=== PATIENT | female | born 1945 | race Caucasian/White ===

== ENCOUNTER 2018-03-11 11:30 | Outpatient (AMBR) | payer MEDICARE, BC, SELFPAY ==
--- NOTE | 2018-03-04 10:12 | PT.OIERPT ---
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 She is ambulating without assistive device today and uses the cane sometimes and has fear of falling and feels off balance at times. She grocery shops alone with the cart and she can cook with limited function. Pt is independent with ADL's and can do laundry. She lives with her and has a ramp up to her single story home. 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 Pt goal: to loosen up the muscles on her left side and regain strength Objective L shoulder AROM: Strength: FF: 116 deg 3-/5 Abd: 60 deg 3-/5 Erot: 45 deg 3-/5 L knee AROM: Strength: Flexion: 116 deg 4-/5 Extension: full 4-/5 SLR: 55 deg Hip flexion: 108 deg 4-/5 Observation: B genu valgus 30 sec chair to stand: 5, unable to complete due to knee pain Tinetti: 08/01 high fall risk Assessment Pt presentation consistent with referring Dx with decreased balance and functional mobility. Pt is a high fall risk according to Tinetti score. She ambulates with unsymmetrical hemiplegic pattern with increased trunk sway. Poor SL balance and wt shift to L side with decreased foot clearance and step symmetry. Pt has fair rehab potential to reach stated goals due to ssx chronicity as potential barrier. Short Term and Media Senior Recruiter Goals 1. Independent with HEP 2. Improved Tinetti score to 10/31 to demonstrate improved balance and gait. 3. Improved immediate standing balance without sway or moving feet 4. Pt will clear floor with L foot with gait for 50' Treatment Plan 90 day POC in order to complete visits. Pt requires skilled therapy in order to meet stated goals. Rx may consist of Therex, Manual therapy, Neuromuscular re-education, Modalities as indicated-moist heat packs, ice packs, estim Frequency and Duration 2x a week for 6 weeks Certification Dates: 03/04/18 to 06/02/18 Office Procedures PT Outpatient G-Codes Date of Service PT Date of Service: 03/04/18 G-Codes Walking & Moving Around Mobility Current Status G-Code: G8978: CL 60-80% Mobility Status G-Code: G8979: CK 40-60% PT Procedures PT Date of Service: 03/04/18 OP PT Eval Mod Complex 30 minutes: Yes CVA/TIA Most Recent Cardiac Tests: No Data to Display
--- NOTE | 2018-03-04 10:18 | PTNOTE_ITS ---
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 She is ambulating without assistive device today and uses the cane sometimes and has fear of falling and feels off balance at times. She grocery shops alone with the cart and she can cook with limited function. Pt is independent with ADL's and can do laundry. She lives with her and has a ramp up to her single story home. 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 Pt goal: to loosen up the muscles on her left side and regain strength Objective L shoulder AROM: Strength: FF: 116 deg 3-/5 Abd: 60 deg 3-/5 Erot: 45 deg 3-/5 L knee AROM: Strength: Flexion: 116 deg 4-/5 Extension: full 4-/5 SLR: 55 deg Hip flexion: 108 deg 4-/5 Observation: B genu valgus 30 sec chair to stand: 5, unable to complete due to knee pain Tinetti: 08/01 high fall risk Assessment Pt presentation consistent with referring Dx with decreased balance and functional mobility. Pt is a high fall risk according to Tinetti score. She ambulates with unsymmetrical hemiplegic pattern with increased trunk sway. Poor SL balance and wt shift to L side with decreased foot clearance and step symmetry. Pt has fair rehab potential to reach stated goals due to ssx chronicity as potential barrier. Short Term and Chandelier Maker Goals 1. Independent with HEP 2. Improved Tinetti score to 10/31 to demonstrate improved balance and gait. 3. Improved immediate standing balance without sway or moving feet 4. Pt will clear floor with L foot with gait for 50' Treatment Plan 90 day POC in order to complete visits. Pt requires skilled therapy in order to meet stated goals. Rx may consist of Therex, Manual therapy, Neuromuscular re- education, Modalities as indicated-moist heat packs, ice packs, estim Frequency and Duration 2x a week for 6 weeks Certification Dates: 03/04/18 to 06/02/18 Office Procedures PT Outpatient G-Codes Date of Service PT Date of Service: 03/04/18 G-Codes Walking & Moving Around Mobility Current Status G-Code: G8978: CL 60-80% Mobility Status G-Code: G8979: CK 40-60% PT Procedures PT Date of Service: 03/04/18 OP PT Eval Mod Complex 30 minutes: Yes CVA/TIA Most Recent Cardiac Tests: 2 No Data to Display
--- NOTE | 2018-03-06 10:58 | PTNOTE_ITS ---
PT Outpatient Daily Note Date of Service: March 06, 2018 OP Daily Note Visit Reasons: Cerebrovascular accident Outpatient Physical Therapy Treatment Date: 03/06/18 Subjective: Pt's balance still a little off and notice that she continues to have difficulty using her left arm. Objective: Please see flow chart for list of ther ex performed Assessment: tolerate exercises performed today Plan: Continue with PT Length of Time (minutes) of Treatment: 40 Minutes Office Procedures PT Outpatient G-Codes Date of Service PT Date of Service: 03/04/18 G-Codes Walking & Moving Around Mobility Current Status G-Code: G8978: CL 60-80% Mobility Status G-Code: G8979: CK 40-60% PT Procedures PT Date of Service: 03/04/18 OP PT Eval Mod Complex 30 minutes: Yes PT Procedures PT Date of Service: 03/06/18 Therapeutic Exercise 45 minutes: Yes CVA/TIA Most Recent Cardiac Tests: 2 No Data to Display
--- NOTE | 2018-03-11 12:02 | PTNOTE_ITS ---
PT Outpatient Daily Note Date of Service: March 11, 2018 OP Daily Note Visit Reasons: Cerebrovascular accident Outpatient Physical Therapy Treatment Date: 03/11/18 Subjective: Pt stated that she is running late. Pt was very sore after last treatment session. Objective: Please see flow chart for list of ther ex performed Assessment: Pt came in at 11:40 am and was advised that sessions are only 30 mins and will only be seen for 20 mins. Pt agree and willing to perform what she can in therapy. We discuss old stroke and process of recovery. Pt was educated based upon my expertise that old stroke that has happen a few years ago and now performing PT will not change much of her muscle activities. Pt was in disagreement that she read online it does change and will like to continue PT. Pt advised that if she continues to proceed with PT she will be given HEP on a weekly basis to continue to maintain what she has gained and be release within medicare guideline. She was also educated that within medicare guideline she does have a medicare cap and if do not make weekly progress I will have to release her from care. Pt instantly mad and walked out of the clinic requesting to be release from all pending appts. Plan: Will contact patient as she calms down regarding her future PT sessions. Length of Time (minutes) of Treatment: 15 Minutes Office Procedures PT Outpatient G-Codes Date of Service PT Date of Service: 03/04/18 G-Codes Walking & Moving Around Mobility Current Status G-Code: G8978: CL 60-80% Mobility Status G-Code: G8979: CK 40-60% PT Procedures PT Date of Service: 03/04/18 OP PT Eval Mod Complex 30 minutes: Yes PT Procedures PT Date of Service: 03/11/18 Therapeutic Exercise 15 minutes: Yes PT Procedures PT Date of Service: 03/06/18 Therapeutic Exercise 45 minutes: Yes CVA/TIA Most Recent Cardiac Tests: 2 No Data to Display
== END 2018-04-03 23:59 ==
PROVIDERS: PCP Internal Medicine; Referring Provider Internal Medicine; Visit Provider Psychiatry & Neurology Neurology
DX: I10 Essential (primary) hypertension (principal)
CPT/HCPCS: 97110; 97162; G8978; G8979

== ENCOUNTER → 2024-10-05 | Outpatient (CLI) | payer MEDICARE, BC, SELFPAY ==
[2024-10-05 09:56] LABS: Alanine Aminotransferase 36 U/L (10-49); Albumin, Serum 4.7 gm/dL (3.4-4.8); Albumin/Globulin Ratio 2.4 (1.2-2.2); Alkaline Phosphatase 88 U/L (46-116); Anion Gap 9 (7-16); Aspartate Amino Transferase 31 U/L (0-34); BUN/Creatinine Ratio 15 Ratio (12-20); Bilirubin,Total 1.3 mg/dL (0.3-1.2); Blood Urea Nitrogen 15 mg/dL (9-23); Calcium 9.9 mg/dL (8.3-10.6); Calcium (Corrected) 9.9 mg/dL (8.5-10.1); Carbon Dioxide 26.3 mMol/L (20.0-31.0); Cardiac Risk Estimate 2.5 RATIO (3.7-5.6); Chloride 99 mMol/L (98-107); Cholesterol 150 mg/dL (132-200); Glucose 109 mg/dL (74-106); HDL Cholesterol 60 mg/dL (40-60); LDL Cholesterol,Calculated 63 mg/dL (0-130); Osmolality,Calculated 270 (275-295); Sodium 134 mMol/L (136-145); Total Protein 6.7 gm/dL (5.7-8.2); Triglycerides 136 mg/dL (30-150); eGFR 57 See Note
[2024-10-05 10:51] LABS: Glucose Estimated Average 117 mg/dL (80-131); Hemoglobin A1C 5.7 % Hgb (4.8-6.0)
== END | disposition home or self-care (01) ==
LOC: COPL 09:02
PROVIDERS: PCP Family Medicine; Referring Provider Physician Assistant; Visit Provider Physician Assistant
DX: I10 Essential (primary) hypertension (principal); R73.01 Impaired fasting glucose; E78.5 Hyperlipidemia, unspecified; E03.9 Hypothyroidism, unspecified
CPT/HCPCS: 36415; 80053; 80061; 83036; 84443

== ENCOUNTER → 2025-02-19 | Outpatient (CLI) | payer MEDICARE, BC, SELFPAY ==
[2025-02-19 11:28] LABS: Basophils % (Auto) 0 % (0-2.5); Eosinophils % (Auto) 1 % (0-10); Hemoglobin 13.2 g/dL (12.0-16.0); Immature Granulocytes % (Auto) 0 % (0-0); Immature Granulocytes Auto 0.03 Thou/mm3 (0.00-0.00); Lymphocytes # (Auto) 1.1 Thou/mm3 (1.0-4.8); Lymphocytes % (Auto) 13 % (10-50); Mean Corpuscular HGB Conc 34.7 g/dl (31.0-37.0); Mean Corpuscular Hemoglobin 30.6 pg (25.0-35.0); Mean Corpuscular Volume 88 fL (80-100); Monocytes # (Auto) 0.6 Thou/mm3 (0.0-0.8); Monocytes % (Auto) 7 % (0-12); Neutrophils # (Auto) 6.9 Thou/mm3 (1.8-7.7); Neutrophils % (Auto) 79 % (37-80); Nucleated Red Blood Cell % 0 /100 WBC (0); Platelet Count 336 Thou/mm3 (140-440); RDW Standard Deviation 42.6 fL (36.4-46.3); Red Blood Count 4.31 Miln/mm3 (4.00-5.20); White Blood Count 8.6 Thou/mm3 (3.6-11.0)
[2025-02-19 11:40] LABS: Alanine Aminotransferase 26 U/L (10-49); Albumin, Serum 4.3 gm/dL (3.4-4.8); Alkaline Phosphatase 91 U/L (46-116); Anion Gap 10 (7-16); Aspartate Amino Transferase 32 U/L (0-34); BUN/Creatinine Ratio 17 Ratio (12-20); Bilirubin,Total 1.3 mg/dL (0.3-1.2); Blood Urea Nitrogen 15 mg/dL (9-23); Calcium 9.7 mg/dL (8.3-10.6); Calcium (Corrected) 9.7 mg/dL (8.5-10.1); Carbon Dioxide 24.2 mMol/L (20.0-31.0); Chloride 96 mMol/L (98-107); Creatinine (Component) 0.9 mg/dL (0.6-1.3); Globulin 2.1 gm/dL (2.3-3.5); Glucose 120 mg/dL (74-106); Osmolality,Calculated 262 (275-295); Potassium 3.8 mMol/L (3.4-5.1); Sodium 130 mMol/L (136-145); Total Protein 6.4 gm/dL (5.7-8.2); eGFR > 60 See Note
== END | disposition home or self-care (01) ==
PROVIDERS: PCP Physician Assistant; Referring Provider Physician Assistant; Visit Provider Physician Assistant
DX: K52.9 Noninfective gastroenteritis and colitis, unspecified (principal); R53.1 Weakness
CPT/HCPCS: 36415; 80053; 85025

== ENCOUNTER → 2025-02-24 | Outpatient (CLI) | payer MEDICARE, BC, SELFPAY ==
[2025-02-24 14:59] LABS: Stool for WBCs Negative (Negative)
== END | disposition home or self-care (01) ==
LOC: SLDO 08:22
PROVIDERS: PCP Family Medicine; Referring Provider Physician Assistant; Visit Provider Physician Assistant
DX: K52.9 Noninfective gastroenteritis and colitis, unspecified (principal); R53.1 Weakness
CPT/HCPCS: 87015; 87045; 87046; 87177; 87205; 87209; 87493; 87899

== ENCOUNTER → 2025-03-26 | Outpatient (CLI) | payer MEDICARE, BC, SELFPAY ==
[2025-03-26 08:19] LABS: Collection Type, Urine Clean Catch
[2025-03-26 08:37] LABS: Basophils # (Auto) 0.1 Thou/mm3 (0.0-0.2); Basophils % (Auto) 1 % (0-2.5); Eosinophils # (Auto) 0.2 Thou/mm3 (0.0-0.5); Eosinophils % (Auto) 2 % (0-10); Hematocrit 39.6 % (36.0-46.0); Hemoglobin 13.8 g/dL (12.0-16.0); Immature Granulocytes % (Auto) 0 % (0-0); Immature Granulocytes Auto 0.01 Thou/mm3 (0.00-0.00); Lymphocytes % (Auto) 30 % (10-50); Mean Corpuscular HGB Conc 34.8 g/dl (31.0-37.0); Mean Corpuscular Hemoglobin 31.1 pg (25.0-35.0); Mean Corpuscular Volume 89 fL (80-100); Monocytes # (Auto) 0.6 Thou/mm3 (0.0-0.8); Monocytes % (Auto) 9 % (0-12); Neutrophils # (Auto) 3.8 Thou/mm3 (1.8-7.7); Neutrophils % (Auto) 58 % (37-80); Nucleated Red Blood Cell % 0 /100 WBC (0); Platelet Count 309 Thou/mm3 (140-440); RDW Standard Deviation 46.1 fL (36.4-46.3); Red Blood Count 4.44 Miln/mm3 (4.00-5.20); White Blood Count 6.6 Thou/mm3 (3.6-11.0)
[2025-03-26 08:45] LABS: Bilirubin,Urine Negative (Negative); Blood,Urine Negative (Negative); Clarity,Urine Clear (Clear/Hazy); Color,Urine Lt-Yellow (Lt Yel-Yel); Culture Indicated,Urine Not Indicated; Glucose, Urine Negative (Negative); Ketones,Urine Negative (Negative); Leukocyte Esterase,Urine Positive (Negative); Nitrite,Urine Negative (Negative); PH,Urine 6.5 (5.0-7.0); Protein,Urine Negative (Neg - Trace); RBC,Urine 4 /hpf (0-3); Specific Gravity,Urine 1.012 (1.001-1.035); Squamous Epithelial Cell,Urine 2 /hpf (0-5); Urobilinogen,Urine Negative mg/dL (0.0-1.0); WBC,Urine 4 /hpf (0-5)
[2025-03-26 08:46] LABS: Glucose Estimated Average 117 mg/dL (80-131); Hemoglobin A1C 5.7 % Hgb (4.8-6.0)
[2025-03-26 08:51] LABS: Alanine Aminotransferase 37 U/L (10-49); Albumin, Serum 4.6 gm/dL (3.4-4.8); Albumin/Globulin Ratio 1.7 (1.2-2.2); Alkaline Phosphatase 86 U/L (46-116); Anion Gap 9 (7-16); Aspartate Amino Transferase 41 U/L (0-34); BUN/Creatinine Ratio 14 Ratio (12-20); Bilirubin,Total 1.2 mg/dL (0.3-1.2); Blood Urea Nitrogen 14 mg/dL (9-23); Calcium 9.6 mg/dL (8.3-10.6); Calcium (Corrected) 9.6 mg/dL (8.5-10.1); Carbon Dioxide 27.4 mMol/L (20.0-31.0); Cardiac Risk Estimate 2.5 RATIO (3.7-5.6); Chloride 101 mMol/L (98-107); Cholesterol 158 mg/dL (132-200); Globulin 2.7 gm/dL (2.3-3.5); Glucose 105 mg/dL (74-106); HDL Cholesterol 64 mg/dL (40-60); LDL Cholesterol,Calculated 66 mg/dL (0-130); Osmolality,Calculated 274 (275-295); Sodium 137 mMol/L (136-145); Thyroid Stimulating Hormone 0.52 uIU/mL (0.55-4.78); Total Protein 7.3 gm/dL (5.7-8.2); Triglycerides 141 mg/dL (30-150); eGFR 57 See Note
[2025-03-26 09:03] LABS: Vitamin B12 800 pg/mL (211-911)
== END | disposition home or self-care (01) ==
LOC: COPL 07:38
PROVIDERS: PCP Family Medicine; Referring Provider Physician Assistant; Visit Provider Physician Assistant
DX: I10 Essential (primary) hypertension (principal); R73.01 Impaired fasting glucose; E78.5 Hyperlipidemia, unspecified; E03.9 Hypothyroidism, unspecified
CPT/HCPCS: 36415; 80053; 80061; 81001; 82306; 82607; 83036; 84443; 85025

== ENCOUNTER → 2025-04-12 | Outpatient (CLI) | payer MEDICARE, BC, SELFPAY | END | disposition home or self-care (01) | LOC: SLDO 14:36 | PROVIDERS: PCP Physician Assistant; Referring Provider Physician Assistant; Visit Provider Physician Assistant | DX: N39.0 Urinary tract infection, site not specified (principal) | CPT/HCPCS: 87077; 87086; 87186 ==

== ENCOUNTER → 2025-04-30 | Outpatient (CLI) | payer MEDICARE, BC, SELFPAY ==
[2025-04-30 14:27] LABS: Collection Type, Urine Clean Catch; Squamous Epithelial Cell,Urine 0 /hpf (0-5)
[2025-04-30 16:23] LABS: Bacteria,Urine 4+; Bilirubin,Urine Negative (Negative); Blood,Urine 3+ (Negative); Color,Urine Yellow (Lt Yel-Yel); Glucose, Urine Negative (Negative); Ketones,Urine Negative (Negative); Leukocyte Esterase,Urine Positive (Negative); Nitrite,Urine Negative (Negative); Protein,Urine Trace (Neg - Trace); RBC,Urine 176 /hpf (0-3); Specific Gravity,Urine 1.011 (1.001-1.035); Urobilinogen,Urine Negative mg/dL (0.0-1.0); WBC,Urine 1051 /hpf (0-5)
[2025-04-30 16:32] LABS: Clarity,Urine Cloudy (Clear/Hazy)
== END | disposition home or self-care (01) ==
LOC: SLDO 14:10
PROVIDERS: PCP Family Medicine; Referring Provider Family Medicine; Visit Provider Family Medicine
DX: N39.0 Urinary tract infection, site not specified (principal)
CPT/HCPCS: 81001; 87077; 87086; 87186

== ENCOUNTER → 2025-06-03 | Outpatient (CLI) | payer MEDICARE, BC, SELFPAY ==
[2025-06-03 09:14] LABS: Collection Type, Urine Clean Catch
[2025-06-03 09:39] LABS: Basophils # (Auto) 0.1 Thou/mm3 (0.0-0.2); Basophils % (Auto) 1 % (0-2.5); Eosinophils # (Auto) 0.1 Thou/mm3 (0.0-0.5); Eosinophils % (Auto) 1 % (0-10); Hematocrit 40.0 % (36.0-46.0); Hemoglobin 13.7 g/dL (12.0-16.0); Immature Granulocytes Auto 0.01 Thou/mm3 (0.00-0.00); Lymphocytes # (Auto) 1.5 Thou/mm3 (1.0-4.8); Lymphocytes % (Auto) 24 % (10-50); Mean Corpuscular HGB Conc 34.3 g/dl (31.0-37.0); Mean Corpuscular Hemoglobin 31.4 pg (25.0-35.0); Mean Corpuscular Volume 92 fL (80-100); Monocytes # (Auto) 0.5 Thou/mm3 (0.0-0.8); Monocytes % (Auto) 9 % (0-12); Neutrophils # (Auto) 4.1 Thou/mm3 (1.8-7.7); Neutrophils % (Auto) 65 % (37-80); Nucleated Red Blood Cell # 0.00 Thou/mm3 (0.00-0.00); Nucleated Red Blood Cell % 0 /100 WBC (0); Platelet Count 292 Thou/mm3 (140-440); RDW Standard Deviation 46.5 fL (36.4-46.3); Red Blood Count 4.37 Miln/mm3 (4.00-5.20); White Blood Count 6.3 Thou/mm3 (3.6-11.0)
[2025-06-03 09:43] LABS: Glucose Estimated Average 123 mg/dL (80-131); Hemoglobin A1C 5.9 % Hgb (4.8-6.0)
[2025-06-03 09:43] LABS: Bilirubin,Urine Negative (Negative); Blood,Urine Negative (Negative); Clarity,Urine Clear (Clear/Hazy); Color,Urine Lt-Yellow (Lt Yel-Yel); Glucose, Urine Negative (Negative); Ketones,Urine Negative (Negative); Leukocyte Esterase,Urine Negative (Negative); Nitrite,Urine Negative (Negative); PH,Urine 7.0 (5.0-7.0); Protein,Urine Negative (Neg - Trace); RBC,Urine 2 /hpf (0-3); Specific Gravity,Urine 1.009 (1.001-1.035); Squamous Epithelial Cell,Urine < 1 /hpf (0-5); Urobilinogen,Urine Negative mg/dL (0.0-1.0); WBC,Urine 1 /hpf (0-5)
[2025-06-03 09:51] LABS: Vitamin B12 477 pg/mL (211-911); Vitamin D 25 Hydroxy Total 46.2 ng/mL (7.3-40.2)
[2025-06-03 09:53] LABS: Alanine Aminotransferase 38 U/L (10-49); Albumin, Serum 4.3 gm/dL (3.4-4.8); Albumin/Globulin Ratio 1.7 (1.2-2.2); Alkaline Phosphatase 80 U/L (46-116); Anion Gap 6 (7-16); Aspartate Amino Transferase 38 U/L (0-34); BUN/Creatinine Ratio 13 Ratio (12-20); Bilirubin,Total 1.3 mg/dL (0.3-1.2); Blood Urea Nitrogen 12 mg/dL (9-23); Calcium 9.7 mg/dL (8.3-10.6); Calcium (Corrected) 9.7 mg/dL (8.5-10.1); Carbon Dioxide 27.1 mMol/L (20.0-31.0); Cardiac Risk Estimate 2.3 RATIO (3.7-5.6); Chloride 99 mMol/L (98-107); Cholesterol 139 mg/dL (132-200); Creatinine (Component) 0.9 mg/dL (0.6-1.3); Free T4 (Free Thyroxine) 1.55 ng/dL (0.89-1.76); Globulin 2.5 gm/dL (2.3-3.5); Glucose 104 mg/dL (74-106); HDL Cholesterol 60 mg/dL (40-60); LDL Cholesterol,Calculated 56 mg/dL (0-130); Osmolality,Calculated 264 (275-295); Potassium 4.5 mMol/L (3.4-5.1); Sodium 132 mMol/L (136-145); Thyroid Stimulating Hormone 1.11 uIU/mL (0.55-4.78); Total Protein 6.8 gm/dL (5.7-8.2); Triglycerides 113 mg/dL (30-150); eGFR > 60 See Note
== END | disposition home or self-care (01) ==
LOC: COPL 08:02
PROVIDERS: PCP Physician Assistant; Referring Provider Internal Medicine Cardiovascular Disease; Visit Provider Internal Medicine Cardiovascular Disease
DX: I48.21 Permanent atrial fibrillation (principal); E03.9 Hypothyroidism, unspecified; I10 Essential (primary) hypertension; E78.5 Hyperlipidemia, unspecified; R73.01 Impaired fasting glucose; E55.9 Vitamin D deficiency, unspecified
CPT/HCPCS: 36415; 80053; 80061; 81001; 82306; 82607; 83036; 84439; 84443; 85025; 87086

== ENCOUNTER → 2025-07-09 | Outpatient (CLI) | payer MEDICARE, BC, SELFPAY ==
[2025-07-09 09:40] LABS: Alanine Aminotransferase 48 U/L (10-49); Albumin, Serum 4.3 gm/dL (3.4-4.8); Albumin/Globulin Ratio 1.9 (1.2-2.2); Alkaline Phosphatase 77 U/L (46-116); Anion Gap 12 (7-16); Aspartate Amino Transferase 44 U/L (0-34); BUN/Creatinine Ratio 15 Ratio (12-20); Bilirubin,Total 1.0 mg/dL (0.3-1.2); Blood Urea Nitrogen 15 mg/dL (9-23); Calcium 10.2 mg/dL (8.3-10.6); Calcium (Corrected) 10.2 mg/dL (8.5-10.1); Carbon Dioxide 25.3 mMol/L (20.0-31.0); Chloride 102 mMol/L (98-107); Creatinine (Component) 1.0 mg/dL (0.6-1.3); Globulin 2.3 gm/dL (2.3-3.5); Glucose 100 mg/dL (74-106); Osmolality,Calculated 278 (275-295); Potassium 4.1 mMol/L (3.4-5.1); Sodium 139 mMol/L (136-145); Total Protein 6.6 gm/dL (5.7-8.2); eGFR 56 See Note
[2025-07-13 06:54] LABS: Fecal Globin Result NOT DETECTED (NOT DETECTED)
== END | disposition home or self-care (01) ==
LOC: COPL 08:53
PROVIDERS: PCP Family Medicine; Referring Provider Physician Assistant; Visit Provider Physician Assistant
DX: I10 Essential (primary) hypertension (principal); E03.9 Hypothyroidism, unspecified; E78.5 Hyperlipidemia, unspecified; R73.01 Impaired fasting glucose; E55.9 Vitamin D deficiency, unspecified
CPT/HCPCS: 36415; 80053; 82274; G0328

== ENCOUNTER → 2025-08-13 | Outpatient (CLI) | payer MEDICARE, BC, SELFPAY | END | disposition home or self-care (01) | LOC: SLDO 14:46 | PROVIDERS: PCP Nurse Practitioner Family; Referring Provider Nurse Practitioner Family; Visit Provider Nurse Practitioner Family | DX: N30.00 Acute cystitis without hematuria (principal) | CPT/HCPCS: 87077; 87086; 87186 ==

== ENCOUNTER → 2025-08-26 | Outpatient (CLI) | payer MEDICARE, BC, SELFPAY | END | disposition home or self-care (01) | LOC: SLDO 15:01 | PROVIDERS: PCP Physician Assistant; Referring Provider Physician Assistant; Visit Provider Physician Assistant | DX: N39.0 Urinary tract infection, site not specified (principal) | CPT/HCPCS: 87077; 87086; 87186 ==